=== PATIENT | female | born 1955 ===

== ENCOUNTER 2017-01-31 09:13 | Inpatient (IN) | payer BC, OTHER ==
[2017-01-28 11:17] VITALS: BMI 25.7
[2017-01-31] MEDS ORDERED: Propofol 10 mg/ml Inj (20 ML) ONE (10:26)
[2017-01-31] MEDS ORDERED: Midazolam 2 MG/2 ML VIAL ONE (10:27)
[2017-01-31] MEDS ORDERED: Succinylcholine 200 mg/10 ml Inj IV ONE (10:27)
[2017-01-31] MEDS ORDERED: ePHEDrine 50 mg/ml Inj ONE (10:27)
[2017-01-31] MEDS ORDERED: Rocuronium 10 mg/ml (5 ml) ONE ×2 (10:27→13:49)
[2017-01-31] MEDS ORDERED: Bupivacaine 0.5% Inj(30mL) ONE (11:25)
[2017-01-31] MEDS ORDERED: Lactated Ringer's 1,000 ML IV ONE ×2 (12:15→12:25)
[2017-01-31] MEDS ORDERED: Neostigmine Methylsulfate 2 MG/2 ML ML IV ONE (13:07)
[2017-01-31] MEDS ORDERED: Neostigmine Methylsulfate 3mg/3ml Syringe IV ONE (13:07)
[2017-01-31] MEDS ORDERED: Dexamethasone 4 mg/1 ml ONE (13:08)
[2017-01-31] MEDS ORDERED: Sevoflurane - Inhalation Anesthetic Liq (250 ml) ONE (13:25)
[2017-01-31] MEDS ORDERED: HYDROmorphone 0.5 mg/0.5 ml ISec IVP PRN (15:21)
[2017-01-31] MEDS ORDERED: Droperidol 2.5 mg/ml Inj IVP PRN (15:21)
[2017-01-31] MEDS ORDERED: Naloxone 0.4 mg/ml Inj (Adult) IVP PRN (15:36)
[2017-01-31] MEDS ORDERED: Acetaminophen 650mg/20.3ml solution UD NG PRN (15:50)
[2017-01-31] MEDS: Lactated Ringer's 1,000 ML IV SCH (22:28)
[2017-02-01] MEDS: Lactated Ringer's 1,000 ML IV SCH (03:58)
[2017-02-01] MEDS ORDERED: Levothyroxine 125 MCG TAB PO SCH (06:30)
[2017-02-01 08:06] LABS: PROTHROMBIN TIME 11.5 Seconds (9.8-13.1)
[2017-02-01] MEDS ORDERED: Oxycodone/Acetaminophen 5/325 mg Tab PO PRN (08:47)
[2017-02-01] MEDS ORDERED: Oxycodone/Acetaminophen 5/325 mg Tab PO ONE (08:47)
--- NOTE | 2017-02-01 11:40 | CP.PCM.PN ---
Subjective - Date & Time of Evaluation Date of Evaluation: 02/01/17 Time of Evaluation: 11:38 - Subjective Subjective: Patient with c/o incisional pain Objective - Vital Signs/Intake and Output Vital Signs (last 24 hours): Temp Pulse Resp BP Pulse Ox 98.7 F 74 20 106/54 L 98 02/01/17 08:01 02/01/17 08:01 02/01/17 08:01 02/01/17 08:01 02/01/17 08:01 Intake and Output: 02/01/17 02/01/17 06:59 18:59 Intake Total 1400 Output Total 945 Balance 455 - Medications Medications: Current Medications Acetaminophen (Tylenol 650 Mg Supp) 650 mg DC Q6 PRN PRN Reason: Fever >100.4 F Acetaminophen (Tylenol 650mg/20.3ml Solution Ud) 650 mg NG Q6 PRN PRN Reason: Fever >100.4 F Calcium Carbonate (Oscal) 1,000 mg PO DAILY [facility] Last Admin: 02/01/17 11:22 Dose: 1,000 mg Docusate Sodium (Colace) 100 mg PO BID [facility] Last Admin: 02/01/17 11:21 Dose: 100 mg Heparin Sodium (Porcine) (Heparin) 5,000 units SC Q12 [facility] PRN Reason: Protocol Last Admin: 02/01/17 11:24 Dose: 5,000 units Lactated Ringer's (Lactated Ringer's) 1,000 mls @ 100 mls/hr IV .Q10H [facility] Last Admin: 02/01/17 03:58 Dose: Not Given Ibuprofen (Motrin Tab) 400 mg PO Q6 PRN PRN Reason: Fever >100.4 F Levothyroxine Sodium (Synthroid) 125 mcg PO DAILY@0630 [facility] Last Admin: 02/01/17 07:35 Dose: 125 mcg Naloxone HCl (Narcan) 0.1 mg IVP Q2M PRN PRN Reason: Excess sedation Ondansetron HCl (Zofran Inj) 4 mg IVP Q6 PRN PRN Reason: Nausea/Vomiting Oxycodone/Acetaminophen (Percocet 5/325 Mg Tab) 1 tab PO Q4 PRN PRN Reason: Pain, severe (8-10) Stop: 02/04/17 08:48 - Labs Labs: PT 11.5 Seconds (9.8-13.1) 02/01/17 05:30 INR 1.0 (0.9-1.2) 02/01/17 05:30 - Constitutional Appears: Well - Respiratory Exam Respiratory Exam: NORMAL BREATHING PATTERN - GI/Abdominal Exam GI & Abdominal Exam: Soft, Tenderness, Normal Bowel Sounds - Extremities Exam Extremities Exam: Normal Inspection (abdominal incisions were clean and dry no vaginal bleeding seen) Assessment and Plan - Assessment and Plan (Free Text) Assessment: s/p Robotic Hysterectomy BSO Plan: D/C to home with F/U in [address] Lynch pelvic rest 6 weeks
[2017-02-01 11:56] VITALS: BP 106/54; PULSE 74; RESP 20; TEMP 98.7; O2SAT 98
--- NOTE | 2017-03-06 10:34 | OP ---
PROCEDURE DATE: 01/31/2017 PREOPERATIVE DIAGNOSES: Pelvic pain, complex ovarian mass. POSTOPERATIVE DIAGNOSIS: Fibroid uterus with paratubal cyst. PROCEDURES: 1. Robotic-assisted hysterectomy with bilateral salpingo-oophorectomy. 2. Lysis of adhesions. 3. Enterolysis. 4. Cystoscopy. SURGEON: Dr. Andrew Lynch STEAM POWERPLANT SUPERVISOR: Dr. Garcia ANESTHESIOLOGIST: Dr. Van ANESTHESIA: General with endotracheal tube. ESTIMATED BLOOD LOSS: 100 mL. COMPLICATIONS: None. INDICATIONS FOR PROCEDURE: A 62-year-old with chronic pelvic pain and persistent complex ovarian mass. FINDINGS: Uterus with a fundal fibroid. Normal tubes bilaterally with a left paratubal cyst. Intra-abdominal adhesions with omentum. She had a tear in the abdominal wall and bowel adhesions on the left pelvic sidewall as well as left adnexal tubular structures. DESCRIPTION OF PROCEDURE: After informed consent was obtained and signed, the patient was brought to the operating room and placed in the supine position. Once general anesthesia was successfully induced, the patient was prepped and draped in usual sterile fashion and placed in dorsal lithotomy position. Once in dorsal lithotomy position, the patient was then examined under anesthesia. A bivalve speculum was placed intravaginally. The cervix was identified and grasped with a single-tooth tenaculum. It was then tented forward and dilated in a graduated fashion to accommodate the diameter of the VCare uterine manipulator. Once VCare uterine manipulator was put in place, it was insufflated and the bivalve speculum as well as the tenaculum were removed at this point. Singh catheter was put in place. Attention was turned to the pre-prepped abdominal area at which point in time Marcaine solution was placed in the umbilical region and an 8 mm umbilical incision was made in the umbilicus region. Veress needle was placed. Abdominal cavity was inflated with CO2 distention medium. Once full of pressure, *------*04:02. The Veress needle was removed. Trocar was placed without difficulty and confirmation was made with a robotic scope. Abdominal cavity was surveyed. At this point in time, the remaining trocars were then placed under direct visualization; two in the lateral left and three in the lateral right including accessory port. At this point in time, Marcaine injections were injected prior to the incision and 8 mm incisions were made by Dr. Garcia and the trocars were placed under direct visualization. Once all the trocars were in place, the robot was then docked with ease. At this point in time, Dr. Garcia then deployed all the robotic instruments under direct visualization; monopolar yamileth, the PK as well as the ProGrasp. Once all instruments were noted to be in place, at that point in time I descrubbed one to the console unit to control the robot. At this point in time, all instruments were visualized. Dr. Garcia elevated the uterus and manipulated it to the contralateral side. At this point in time, all the bowel adhesions and omental adhesions were taken down using monopolar yamileth and the PK graspers. Once this was completed, the tubular structure was freed and tubes were then grasped and elevated using monopolar and the PK. Cauterization occurred and transection of IP ligament and skeletonization. Attention was turned to the round ligaments, which were grasped and cauterized. Once cauterized bilaterally, they were transected with monopolar yamileth and a bladder flap was created anteriorly using the monopolar yamileth pushing the bladder distally away from the cervix. Once the bladder flap was completely displaced distally, attention was then turned to the uterine arteries, which were grasped with PK and cauterized bilaterally and then transected. Once this was completed, an incision was made using the monopolar yamileth at the junction of the cervix and the vaginal cuff. At this point in time, the green cup of the VCare manipulator was then exposed. Using a circumferential incision, the uterus was then excised in its entirety. Once the uterus was mobile and able to be removed, Dr. Garcia then extracted the uterus with ease. The specimen was sent to Pathology. At this point in time, Dr. Garcia placed a moist laparotomy pad in the vaginal area to maintain pneumoperitoneum. At this point in time, Dr. Garcia removed the monopolar yamileth and replaced it with Christiano suture cut instrument as well as placed a V-Loc suture of 12 inches and the console was able to then close the vaginal cuff in the running locking suture with V-Loc suture. Then, the uterine arteries were then reinforced at the end of the suture closure. At this point in time, the needle was then transected and Dr. Garcia grasped and removed the needle through the accessory port. Dr. Garcia then copiously irrigated the abdominal cavity. Once good hemostasis was assured, Dr. Garcia then placed FloSeal inside the pelvic cavity near the pelvic cuff. Once this was completed, all equipment were then removed from robot's arms. The robot was disconnected from the trocars. Trocars were removed. The robot was undocked away from the patient and all air was removed from the abdominal cavity. Using 2-0 Vicryl suture, the fascia was closed. Using 2-0 Monocryl suture, the skin was closed subcuticularly and Dermabond glue was placed on top of the incision and dressings were applied. At this time, a cystoscopy was being performed. The Singh catheter was removed and, using a lubricated cystoscope, the cystoscope was placed with ease through the urethral meatus and the bladder was then insufflated with normal saline distention medium. Once this was completed, careful survey of the bladder cavity was then performed with noting of any extraneous sutures or injury to the bladder and none were found. At this point in time, efflux of urine was noted coming at the both ureteral openings. At this time, the cystoscope was then extracted. The Singh was replaced. The patient was then noted to have all sponge, needle and equipment count x3 correct and the patient went to recovery room in stable condition. Andrew Lynch MD
== END 2017-02-01 13:00 | disposition home or self-care (01) | DRG 743 ==
LOC: H.OPSURG 09:13 → H.MEDSURG1 16:01
PROVIDERS: ADMIT Specialist; ATTEND Specialist
PROC: 0UB20ZZ Excision of Bilateral Ovaries, Open Approach (ICD-10-PCS; 2017-01-31)
PROC: 0UB70ZZ Excision of Bilateral Fallopian Tubes, Open Approach (ICD-10-PCS; 2017-01-31)
PROC: 0DNS0ZZ (ICD-10-PCS; 2017-01-31)
PROC: 8E0W0CZ Robotic Assisted Procedure of Trunk Region, Open Approach (ICD-10-PCS; 2017-01-31)
PROC: 0TJB8ZZ Inspection of Bladder, Via Natural or Artificial Opening Endoscopic (ICD-10-PCS; 2017-01-31)
PROC: 0UT90ZZ Resection of Uterus, Open Approach (ICD-10-PCS; principal; 2017-01-31 10:45)
PROC: 0UTC0ZZ Resection of Cervix, Open Approach (ICD-10-PCS; 2017-01-31 10:45)
DX: D25.9 Leiomyoma of uterus, unspecified (principal); G89.29 Other chronic pain; N83.8 Other noninflammatory disorders of ovary, fallopian tube and broad ligament; K66.0 Peritoneal adhesions (postprocedural) (postinfection); N93.9 Abnormal uterine and vaginal bleeding, unspecified